=== PATIENT | female | born 1985 | race Caucasian/White ===

== ENCOUNTER 2018-03-08 08:40 | Day surgery (SDC) | payer BC ==
[~2018-03-08 08:40] MED LIST: Lactated Ringers 1,000 ML IV ONE; Lactated Ringers 1,000 ML IV SCH; MEFOXIN 2 GM PREMIX** 2 GM/50 ML ML IV ONE
[2018-03-08] MEDS ORDERED: SUBLIMAZE 250 MCG/5 ML IV ONE (08:41)
[2018-03-08] MEDS ORDERED: BRIDION 200MG/2ML IV ONE (08:41)
[2018-03-08] MEDS ORDERED: Versed 2 MG/2 ML Injection IV ONE (08:41)
[2018-03-08] MEDS ORDERED: DIPRIVAN 200 MG/20 ML IV ONE (08:41)
[2018-03-08] MEDS ORDERED: Zemuron 100 MG/10 ML IV ONE (08:41)
[2018-03-08] MEDS ORDERED: MEFOXIN 2 GM PREMIX** 2 GM/50 ML ML IV SCH (09:00)
[2018-03-08] MEDS ORDERED: Lactated Ringers 1,000 ML IV ONE (09:22)
[2018-03-08] MEDS ORDERED: Sensorcaine 0.25% 10 ML ONE (09:22)
--- NOTE | 2018-03-08 09:43 | HP ---
DATE OF SURGERY: 03/08/2018 HISTORY OF PRESENT ILLNESS: The patient is a 32 year-old who had some pain upper abdomen right side and upper back for a couple of months worse since she had a child on 12/16/2017. Ultrasound showed cholelithiasis. Pain is worse with greasy and fatty foods. Nothing helps the pain. PAST MEDICAL HISTORY: She denies any chronic illnesses. PAST SURGICAL HISTORY: No abdominal surgery. She had tumor removed from her head in the past from her scalp. Lymph node biopsy in the past. MEDICATIONS: control pills. ALLERGIES: NKDA. FAMILY HISTORY: Cancer. SOCIAL HISTORY: No smoking. REVIEW OF SYSTEMS: Twelve systems reviewed per admission assessment. No chest pain or palpitations other systems negative or noncontributory as above and per preadmission questionnaire. PHYSICAL EXAMINATION: GENERAL: No acute distress. HEENT: Sclerae nonicteric. NECK: No JVD. CHEST: Equal excursion, nonlabored breathing. CVS: Regular rate and rhythm. ABDOMEN: Soft. No peritoneal signs. EXTREMITIES: No significant edema. NEURO: Alert, oriented, moving extremities symmetrically. No gross motor deficits noted. IMPRESSION: Symptomatic cholelithiasis, chronic cholecystitis. I feel the patient will benefit from cholecystectomy. Risks and benefits explained in detail, shown the gallbladder pamphlet and risk sheet, explained the procedure in detail including but not limited to bleeding or infection, risk of trocar injury or hernia, small risk of bowel, bladder or blood vessel injury, small risk of bile leak, bile duct injury, retained stone or sludge possibly requiring further procedure either open or ERCP, general risk of anesthesia, deep venous thrombosis, pulmonary embolism, pneumonia, perioperative risk of aches, pains, bloating, constipation and/or loose stools possibly even chronic in nature. She understands and agrees to the planned procedure, will proceed with laparoscopic cholecystectomy with possible open.
[2018-03-08] MEDS ORDERED: SUBLIMAZE 100 MCG/2 ML ONE (11:16)
[2018-03-08] MEDS ORDERED: TORAdol 30 mg Injection ONE (11:34)
[2018-03-08] MEDS ORDERED: Zofran 4 MG/2 ML VIAL IV STA (12:07)
[2018-03-08] MEDS ORDERED: Zofran 4 MG/2 ML VIAL ONE (12:08)
[2018-03-08 13:30] VITALS: BP 92/55; PULSE 63; O2SAT 98
--- NOTE | 2018-03-08 14:05 | OP ---
SURGERY DATE/TIME: 03/08/2018 1024 PREOPERATIVE DIAGNOSIS: Symptomatic cholelithiasis, chronic cholecystitis. POSTOPERATIVE DIAGNOSIS: Symptomatic cholelithiasis, chronic cholecystitis. PROCEDURE: Laparoscopic cholecystectomy. SURGEON: Dr. Gianni Stroud. ASSISSTANT: Blayne Sierra, Medical Student III. ANESTHESIA: General. ESTIMATED BLOOD LOSS: Minimal. INDICATIONS: As noted above. Risks and benefits explained in detail but not limited to and consent obtained. DESCRIPTION OF PROCEDURE AND FINDINGS: The patient is taken to the OR. General anesthesia was induced. Abdomen prepped and draped in the usual sterile fashion. After official time out and no disagreement with planned procedure, a transverse incision made infraumbilical as she had supraumbilical piercing. Fascia grasped and pulled upward. Veress needle inserted and tested with saline. Pneumoperitoneum accomplished insufflating opening pressure of 0-15. An 11 mm bladeless port and camera inserted without difficulty followed by two - 5 mm right upper quadrant ports and 5 mm epigastric port. The gallbladder is grasped. She had extensive omental adhesions. Dissection posterior, lateral to anterior fashion. Slowly and carefully the cystic duct and infundibular junction slowly and carefully well skeletonized as was the main cystic artery isolated until a critical view was obtained both anteriorly and posteriorly. Once this was accomplished cystic duct and cystic artery were clipped x3 and divided in usual fashion. Gallbladder slowly and carefully dissected free from its dense attachments to the liver bed staying directly on the gallbladder wall clipping additional oozing side branches off the cystic artery and cystic vein directly on the gallbladder wall as necessary. Just prior to releasing from final attachments to the anterior edge of the liver the liver bed re-inspected. Clips noted to be in place in cystic duct and cystic artery stumps. There were no signs of any active bleeding or bile leakage. It was felt there was no benefit in drain placement. The gallbladder released from final attachments and placed in Pleatman sac pulled up and out the 10/11 port site at the infraumbilical area and passed off. Liver bed inspected one last time. Clips noted to be in place in cystic duct and cystic artery stumps. There were no signs of any active bleeding or bile leakage. At this point the fascial defect 10/11 site closed with puncture closure device with #1 Vicryl. Pneumoperitoneum decompressed. The wound was irrigated out. Skin incision closed with 4-0 Vicryl. Steri-Strips and sterile dressing applied. 0.25% Marcaine local injected along the skin incision fascial defect. The patient tolerated the procedure well. There were no immediate complications. Findings discussed with the family out in the waiting area. She was transferred to recovery in stable condition.
== END 2018-03-08 13:53 | disposition home or self-care (01) ==
LOC: SDC 08:40
PROVIDERS: ATTEND Surgery
DX: K80.10 Calculus of gallbladder with chronic cholecystitis without obstruction (principal)
CPT/HCPCS: 84703; 88304; 94250; J0694; J1885; J2250; J2405; J2704; J3010

== ENCOUNTER 2023-09-17 13:32 | Emergency (ER) | payer BC ==
[2023-09-17 13:53] VITALS: TEMP 95.2
[2023-09-17] MEDS ORDERED: Sodium Chloride 0.9% 1000 ML 1,000 ML IV STA (14:01)
[2023-09-17] MEDS ORDERED: Sodium Chloride 0.9% 1000 ML 1,000 ML ONE (14:34)
--- NOTE | 2023-09-17 14:37 | XRAY ---
Indication: Headache. Weakness. Stroke. Multiple contiguous axial images obtained through the head without contrast. Comparison: June 30, 2014 Normal appearing brain parenchyma, ventricles, and bony calvarium. Mild mucosal thickening both ethmoid and lesser degree left sphenoid sinuses without fluid leveling. Mastoid air cells are clear. Impression: Mild paranasal sinus disease. Remaining CT head without contrast exam continues to be normal.
[2023-09-17 14:41] LABS: BASOPHIL % 0.4 % (0.0-0.4); Basophil (Absolute #) 0.03 x10^3/uL (0-0.4); Eosinophil % 4.6 % (0.00-5.0); Eosinophil (Absolute #) 0.36 x10^3/uL (0-0.5); Hematocrit 37.7 % (35-47); IMMATURE GRAN # 0.02 x10^3u/L (0.00-0.03); IMMATURE GRAN % 0.3 % (0.00-0.4); Lymphocyte (Absolute #) 1.78 x10^3/uL (1.0-4.6); Lymphocytes % 22.6 % (24.0-44.0); Mean Cell Volume 93.1 fL (78-100); Mean Corpuscular Hemoglobin 29.6 pg (26-32); Mean Corpuscular Hgb Concent. 31.8 g/dL (32-36); Mean Platelet Volume 12.1 fL (7.5-11.0); Monocytes % 7.6 % (0.0-12.0); Neutrophil % 64.5 % (36.0-66.0); Platelet Count 234 x10^3/uL (150-450); Red Blood Count 4.05 x10^6/uL (4.1-5.4); Red Cell Distribution Width 13.8 % (11.5-14.0); White Blood Count 7.9 x10^3/uL (4.0-10.5)
--- NOTE | 2023-09-17 14:43 | ERPHSYRPT ---
- History of Present Illness Time Seen by Provider: 09/17/23 14:00 Source: patient Exam Limitations: no limitations Patient Subjective Stated Complaint: Weakness Triage Nursing Assessment: This nurse received a phone call from outpatient surgery stating there was a patient's that they had sat in a chair in lab area due to she felt like she was going to "pass out". Outpatient RNs requesting a cot due to not wanting to stand patient up long. Upon arrival Patient sitting in chair with very pale skin. Patient's BS 78. Physician History: 38-year-old healthy female presented in the ER with chief complaint of gener alized weakness sudden onset with feeling as if she was going to pass out. Patient reports she was standing with her who is going to have surgery and outpatient surgery area and all of a sudden she started to feel really weak tired and no energy all over. She sat down but did not improve well. Patient feels lightheaded with standing. Patient denies any chest pain palpitations or shortness of breath. Reports having 4/10 intensity headache without any numbness tingling or focal weakness. Does have history of migraines. No visual disturbance or difficulty speech. No abdominal pain nausea vomiting or diarrhea reported. Denies any known sick contact. Patient blood sugar was 78 and has no history of diabetes mellitus. Allergies/Adverse Reactions: No Known Drug Allergies Allergy (Verified 09/17/23 13:35) Home Medications: No Reportable Medications [No Reported Medications] 09/17/23 [History] Hx Tetanus, Diphtheria Vaccination/Date Given: Yes Hx Influenza Vaccination/Date Given: No Hx Pneumococcal Vaccination/Date Given: No Immunizations Up to Date: Yes Travel Risk - International Travel Have you traveled outside of the country in past 3 weeks: No - Coronavirus Screening Are you exhibiting any of the following symptoms?: No Close contact with a COVID-19 positive Pt in past 14-21 Days: No - Vaccine Status Have you recieved a Covid-19 vaccination: Yes [employer] Worker: Unknown - Vaccination Dates Dates if Unknown: na - Review of Systems Constitutional: Fatigue, Weakness Eyes: No Symptoms Ears, Nose, & Throat: No Symptoms Respiratory: No Symptoms Cardiac: No Symptoms Abdominal/Gastrointestinal: No Symptoms Genitourinary Symptoms: No Symptoms Musculoskeletal: No Symptoms Skin: No Symptoms Neurological: Dizziness Psychological: No Symptoms Endocrine: No Symptoms Hematologic/Lymphatic: No Symptoms Immunological/Allergic: No Symptoms - Past Medical History Pertinent Past Medical History: Yes Neurological History: Migraines ENT History: No Pertinent History Cardiac History: No Pertinent History Respiratory History: Asthma Endocrine Medical History: No Pertinent History Musculoskeletal History: No Pertinent History GI Medical History: No Pertinent History History: No Pertinent History Psycho-Social History: No Pertinent History Female Reproductive Disorders: No Pertinent History 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 - Social History Smoking Status: Former smoker Exposure to second hand smoke: No Drug Use: none Patient Lives Alone: No - Female History Hx Last Menstrual Period: Nov Hx Now: No - Nursing Vital Signs Nursing Vital Signs: Initial Vital Signs Temperature 95.2 F 09/17/23 13:37 Pulse Rate 80 09/17/23 13:37 Respiratory Rate 18 09/17/23 13:37 Blood Pressure 116/86 09/17/23 13:37 O2 Sat by Pulse Oximetry 99 09/17/23 13:37 Pain Scale Pain Intensity 5 - Physical Exam General Appearance: no apparent distress, alert Eye Exam: PERRL/EOMI Ears, Nose, Throat Exam: normal ENT inspection Neck Exam: normal inspection, non-tender, supple, full range of motion Respiratory Exam: normal breath sounds, lungs clear Cardiovascular Exam: regular rate/rhythm, normal heart sounds Gastrointestinal/Abdomen Exam: soft, normal bowel sounds, No tenderness Back Exam: normal inspection, normal range of motion Extremity Exam: normal inspection, normal range of motion Neurologic Exam: alert, oriented x 3, cooperative, soakers supervisor II-XII nml as tested, normal mood/affect, nml cerebellar function, sensation nml, No motor deficits Skin Exam: normal color SpO2 Interpretation: normal SpO2: 100 O2 Delivery: Room Air - Course EKG Interpreted by Me: RATE (70), Sinus Rhythm, NORMAL AXIS, prolonged QT interval, Non-specific ST Changes Ordered Tests: Medication Summary Discontinued Medications Generic Name Dose Route Start Last Admin Trade Name Freq PRN Reason Stop Dose Admin Sodium Chloride 1,000 mls @ 999 mls/hr 09/17/23 14:01 09/17/23 15:39 Sodium Chloride 0.9% 1000 Ml IV 09/17/23 15:01 Infused .Q1H1M STA Infusion Sodium Chloride Confirm 09/17/23 14:34 Sodium Chloride 0.9% 1000 Ml Administered 09/17/23 14:35 Dose 1,000 mls @ ud .ROUTE .STK-MED ONE Lab/Rad Data: Laboratory Result Diagrams 09/17/23 14:38 09/17/23 14:38 Laboratory Results 09/17/23 09/17/23 09/17/23 Range/Units Unknown 14:50 14:38 WBC (4.0-10.5) x10^3/uL RBC (4.1-5.4) x10^6/uL Hgb (12.0-16.0) g/dL Hct (35-47) % MCV (78-100) fL MCH (26-32) pg MCHC (32-36) g/dL RDW (11.5-14.0) % Plt Count (150-450) x10^3/uL MPV (7.5-11.0) fL Gran % (36.0-66.0) % Immature Gran % (Auto) (0.00-0.4) % Nucleat RBC Rel Count (0.00-0.1) % Eos # (Auto) (0-0.5) x10^3/uL Immature Gran # (Auto) (0.00-0.03) x10^3u/L Absolute Lymphs (auto) (1.0-4.6) x10^3/uL Absolute Monos (auto) (0.0-1.3) x10^3/uL Absolute Nucleated RBC (0.00-0.01) x10^3u/L Lymphocytes % (24.0-44.0) % Monocytes % (0.0-12.0) % Eosinophils % (0.00-5.0) % Basophils % (0.0-0.4) % Absolute Granulocytes (1.4-6.9) x10^3/uL Basophils # (0-0.4) x10^3/uL Sodium (137-145) mmol/L Potassium (3.5-5.1) mmol/L Chloride (98-107) mmol/L Carbon Dioxide (22-30) mmol/L Anion Gap (5-15) MEQ/L BUN (7-17) mg/dL Creatinine (0.52-1.04) mg/dL Estimated GFR ML/MIN Glucose (74-106) mg/dL Lactic Acid (0.4-2.0) Calcium (8.4-10.2) mg/dL Magnesium (1.6-2.3) mg/dL Total Bilirubin (0.2-1.3) mg/dL AST (14-36) U/L ALT (0-35) U/L Alkaline Phosphatase (38-126) U/L Troponin I (0.000-0.034) ng/mL NT-Pro-B Natriuret Pep (<300) pg/mL Serum Total Protein (6.3-8.2) g/dL Albumin (3.5-5.0) g/dL Serum HCG, Qual NEGATIVE (NEGATIVE) Urine Color Yellow (Yellow) Urine Appearance Clear (Clear) Urine pH 7.0 (4.6-8.0) Ur Specific [place] 1.010 (1.005-1.030) Urine Protein Negative (Negative) Urine Glucose (UA) Negative (Negative) mg/dL Urine Ketones Negative (Negative) Urine Blood Negative (Negative) Urine Nitrite Negative (Negative) Urine Bilirubin Negative (Negative) Urine Urobilinogen 0.2 (0.2) mg/dL Ur Leukocyte Esterase Negative (Negative) Urine Microscopic RBC NONE SEEN (0-5) /HPF Urine Microscopic WBC 0-2 (0-5) /HPF Ur Epithelial Cells Few (None Seen) /HPF Urine Bacteria None Seen (None Seen) /HPF Urine Culture Reflexed NO (NO) Influenza Type A Ag NEGATIVE (NEGATIVE) Influenza Type B Ag NEGATIVE (NEGATIVE) RSV (PCR) NEGATIVE (NEGATIVE) SARS-CoV-2 (PCR) NEGATIVE (NEGATIVE) 09/17/23 09/17/23 09/17/23 Range/Units 14:38 14:38 14:38 WBC 7.9 (4.0-10.5) x10^3/uL RBC 4.05 L (4.1-5.4) x10^6/uL Hgb 12.0 (12.0-16.0) g/dL Hct 37.7 (35-47) % MCV 93.1 (78-100) fL MCH 29.6 (26-32) pg MCHC 31.8 L (32-36) g/dL RDW 13.8 (11.5-14.0) % Plt Count 234 (150-450) x10^3/uL MPV 12.1 H (7.5-11.0) fL Gran % 64.5 (36.0-66.0) % Immature Gran % (Auto) 0.3 (0.00-0.4) % Nucleat RBC Rel Count 0.0 (0.00-0.1) % Eos # (Auto) 0.36 (0-0.5) x10^3/uL Immature Gran # (Auto) 0.02 (0.00-0.03) x10^3u/L Absolute Lymphs (auto) 1.78 (1.0-4.6) x10^3/uL Absolute Monos (auto) 0.60 (0.0-1.3) x10^3/uL Absolute Nucleated RBC 0.00 (0.00-0.01) x10^3u/L Lymphocytes % 22.6 L (24.0-44.0) % Monocytes % 7.6 (0.0-12.0) % Eosinophils % 4.6 (0.00-5.0) % Basophils % 0.4 (0.0-0.4) % Absolute Granulocytes 5.10 (1.4-6.9) x10^3/uL Basophils # 0.03 (0-0.4) x10^3/uL Sodium 137 (137-145) mmol/L Potassium 3.9 (3.5-5.1) mmol/L Chloride 109 H (98-107) mmol/L Carbon Dioxide 23 (22-30) mmol/L Anion Gap 9.3 (5-15) MEQ/L BUN 10 (7-17) mg/dL Creatinine 0.74 (0.52-1.04) mg/dL Estimated GFR 105.5 ML/MIN Glucose 96 (74-106) mg/dL Lactic Acid (0.4-2.0) Calcium 9.1 (8.4-10.2) mg/dL Magnesium 1.8 (1.6-2.3) mg/dL Total Bilirubin 0.90 (0.2-1.3) mg/dL AST 50 H (14-36) U/L ALT 61 H (0-35) U/L Alkaline Phosphatase 90 (38-126) U/L Troponin I < 0.012 (0.000-0.034) ng/mL NT-Pro-B Natriuret Pep 82.1 (<300) pg/mL Serum Total Protein 7.0 (6.3-8.2) g/dL Albumin 4.0 (3.5-5.0) g/dL Serum HCG, Qual (NEGATIVE) Urine Color (Yellow) Urine Appearance (Clear) Urine pH (4.6-8.0) Ur Specific [place] (1.005-1.030) Urine Protein (Negative) Urine Glucose (UA) (Negative) mg/dL Urine Ketones (Negative) Urine Blood (Negative) Urine Nitrite (Negative) Urine Bilirubin (Negative) Urine Urobilinogen (0.2) mg/dL Ur Leukocyte Esterase (Negative) Urine Microscopic RBC (0-5) /HPF Urine Microscopic WBC (0-5) /HPF Ur Epithelial Cells (None Seen) /HPF Urine Bacteria (None Seen) /HPF Urine Culture Reflexed (NO) Influenza Type A Ag (NEGATIVE) Influenza Type B Ag (NEGATIVE) RSV (PCR) (NEGATIVE) SARS-CoV-2 (PCR) (NEGATIVE) 09/17/23 Range/Units 14:01 WBC (4.0-10.5) x10^3/uL RBC (4.1-5.4) x10^6/uL Hgb (12.0-16.0) g/dL Hct (35-47) % MCV (78-100) fL MCH (26-32) pg MCHC (32-36) g/dL RDW (11.5-14.0) % Plt Count (150-450) x10^3/uL MPV (7.5-11.0) fL Gran % (36.0-66.0) % Immature Gran % (Auto) (0.00-0.4) % Nucleat RBC Rel Count (0.00-0.1) % Eos # (Auto) (0-0.5) x10^3/uL Immature Gran # (Auto) (0.00-0.03) x10^3u/L Absolute Lymphs (auto) (1.0-4.6) x10^3/uL Absolute Monos (auto) (0.0-1.3) x10^3/uL Absolute Nucleated RBC (0.00-0.01) x10^3u/L Lymphocytes % (24.0-44.0) % Monocytes % (0.0-12.0) % Eosinophils % (0.00-5.0) % Basophils % (0.0-0.4) % Absolute Granulocytes (1.4-6.9) x10^3/uL Basophils # (0-0.4) x10^3/uL Sodium (137-145) mmol/L Potassium (3.5-5.1) mmol/L Chloride (98-107) mmol/L Carbon Dioxide (22-30) mmol/L Anion Gap (5-15) MEQ/L BUN (7-17) mg/dL Creatinine (0.52-1.04) mg/dL Estimated GFR ML/MIN Glucose (74-106) mg/dL Lactic Acid 0.9 (0.4-2.0) Calcium (8.4-10.2) mg/dL Magnesium (1.6-2.3) mg/dL Total Bilirubin (0.2-1.3) mg/dL AST (14-36) U/L ALT (0-35) U/L Alkaline Phosphatase (38-126) U/L Troponin I (0.000-0.034) ng/mL NT-Pro-B Natriuret Pep (<300) pg/mL Serum Total Protein (6.3-8.2) g/dL Albumin (3.5-5.0) g/dL Serum HCG, Qual (NEGATIVE) Urine Color (Yellow) Urine Appearance (Clear) Urine pH (4.6-8.0) Ur Specific [place] (1.005-1.030) Urine Protein (Negative) Urine Glucose (UA) (Negative) mg/dL Urine Ketones (Negative) Urine Blood (Negative) Urine Nitrite (Negative) Urine Bilirubin (Negative) Urine Urobilinogen (0.2) mg/dL Ur Leukocyte Esterase (Negative) Urine Microscopic RBC (0-5) /HPF Urine Microscopic WBC (0-5) /HPF Ur Epithelial Cells (None Seen) /HPF Urine Bacteria (None Seen) /HPF Urine Culture Reflexed (NO) Influenza Type A Ag (NEGATIVE) Influenza Type B Ag (NEGATIVE) RSV (PCR) (NEGATIVE) SARS-CoV-2 (PCR) (NEGATIVE) - Progress Progress: improved, re-examined Progress Note: 09/17/23 16:44 38-year-old is evaluated for sudden onset generalized weakness and feeling as if she was going to pass out. Patient had no chest pain palpitation shortness of breath, numbness tingling or focal weakness. Patient does report taking some energy drinks earlier and did not eat anything before. Her blood sugar was in the 70s. She has a nonfocal neuroexam throughout her stay in the ER. She is given fluids and she perked up really good. Workup showed normal white count, fairly unremarkable chemistries. CT head is negative. Chest x-ray negative. This could be possible hypoglycemia related event versus orthostatics from prolonged standing or has no acute finding on the workup. Recommended outpatient follow-up. Do not think patient needs to be admitted. Discussed signs symptoms of worsening needing return to ER which she seems understanding. Stable for discharge. Counseled pt/family regarding: diagnosis, need for follow-up, rad results Medical Desision Making - Independent Historian Additional History obtained from: Spouse - Diagnostic Testing Diagnostic test were ordered, analyzed, and reviewed by me: Yes Radiological Interpretation: Reviewed by me - Departure Departure Disposition: Home Clinical Impression: General weakness, Near syncope Condition: Stable Critical Care Time: No Referrals: VANNESSA POLLACK MD [Primary Care Provider] - Follow up with PCP 1 day Instructions: Generalized Weakness (DC) Additional Instructions: Drink plenty of fluid. follow up with PCP FOR RE EVALUATION. RETURN TO ER for any worsening
[2023-09-17 15:20] LABS: INFLUENZA A NEGATIVE (NEGATIVE); INFLUENZA B NEGATIVE (NEGATIVE); RESPIRATORY SYNCTIAL VIRUS NEGATIVE (NEGATIVE); SARS-CoV-2 Xpert Express NEGATIVE (NEGATIVE)
[2023-09-17 15:34] LABS: ANION GAP 9.3 MEQ/L (5-15); BILIRUBIN,TOTAL 0.9 mg/dL (0.2-1.3); Calcium 9.1 mg/dL (8.4-10.2); Creatinine 1 0.74 mg/dL (0.52-1.04); EST GLOMERULAR FILTRATION RATE 105.5 ML/MIN; MAGNESIUM 1.8 mg/dL (1.6-2.3); Potassium 3.9 mmol/L (3.5-5.1)
[2023-09-17 15:38] LABS: HCG SERUM TEST NEGATIVE (NEGATIVE)
[2023-09-17 15:51] LABS: NT PRO BNPII 82.1 pg/mL (<300); TROPONIN < 0.012 ng/mL (0.000-0.034)
[2023-09-17 16:19] LABS: Appearance Clear (Clear); Bilirubin Negative (Negative); Blood Negative (Negative); Glucose, Urine Negative (Negative); Ketones Negative (Negative); Leukocyte Esterase Negative (Negative); Nitrite Negative (Negative); Protein,Urine Dip Negative (Negative); Urobilinogen 0.2 mg/dL (0.2)
--- NOTE | 2023-09-17 16:19 | XRAY ---
Indication: General weakness. Comparison: None Portable chest demonstrates minimal left costophrenic angle subsegmental atelectasis/scarring. Remaining heart, lungs, and bony thorax normal.
[2023-09-17 16:40] LABS: Bacteria None Seen /HPF (None Seen); Epithelial Cells Few /HPF (None Seen); RBC NONE SEEN /HPF (0-5); WBC 0-2 /HPF (0-5)
[2023-09-17 16:41] LABS: ADD URINE CULTURE? NO (NO)
[2023-09-17 16:50] VITALS: O2SAT 100
[2023-09-17 16:57] VITALS: BP 105/79; PULSE 82; RESP 16
== END 2023-09-17 17:01 | disposition home or self-care (01) ==
LOC: ED 13:32
DX: R53.1 Weakness (principal); R55 Syncope and collapse
CPT/HCPCS: 0241U; 36000; 36415; 70450; 71045; 80053; 81001; 83605; 83735; 83880; 84484; 84703; 85025; 93005; 93041; 96360; 99284